=== PATIENT | male | born 1980 | race Two or more races ===

== ENCOUNTER → 2020-03-06 08:58 | Outpatient (BNVA) | payer MEDICARE, MEDICAID, SELFPAY | PROVIDERS: PCP Nurse Practitioner Family; Referring Provider Nurse Practitioner Family; Visit Provider Physician Assistant | DX: K58.0 Irritable bowel syndrome with diarrhea (principal); K21.9 Gastro-esophageal reflux disease without esophagitis; Z79.899 Other long term (current) drug therapy | CPT/HCPCS: 99203 ==

== ENCOUNTER → 2020-03-15 13:26 | Outpatient (REF) | payer MEDICARE, MEDICAID, SELFPAY | LOC: HO.SL 13:26 | PROVIDERS: PCP Nurse Practitioner Family; Visit Provider Nurse Practitioner Family | DX: G47.33 Obstructive sleep apnea (adult) (pediatric) (principal); R40.0 Somnolence; R06.83 Snoring; E66.9 Obesity, unspecified; I10 Essential (primary) hypertension | CPT/HCPCS: 95806 ==

== ENCOUNTER 2020-12-17 02:16 | Emergency (ER) | payer MEDICARE, MEDICAID, SELFPAY ==
--- NOTE | ~2020-12-17 | XR_ITS ---
EXAMINATION: XR TIBIA AND FIBULA, LEFT CLINICAL INFORMATION: Evaluate for fracture COMPARISON: 06/08/2012 TECHNIQUE: AP and lateral views of the left tibia and fibula were obtained. XR/XR tibia fibula LT 2V FINDINGS/IMPRESSION: No acute fracture or dislocation. There is a semitubular plate and screws across the distal fibular diaphysis with a single screw traversing the syndesmosis. No evidence of hardware failure or complication. Soft tissues unremarkable.
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
[2020-12-17 02:23] VITALS: BP 155/98; PULSE 86; RESP 16; TEMP 36.8; O2SAT 97; BMI 31.6
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
[2020-12-17 04:10] LABS: Glucose Urine UA NEG (NEG); Leukocyte Esterase Urine NEG (NEG); Nitrite Urine NEG (NEG); PH 5.5 (5.0-8.0); Specific Gravity - Urine <= 1.005 (1.005-1.025); Urine Blood NEG (NEG); Urine Ketones NEG (NEG); Urine Protein NEG (NEG-TRACE)
[2020-12-17 04:16] LABS: Amphetamine Screen Urine Not Detected (Not Detect); Barbiturates, Urine Not Detected (Not Detect); Benzodiazepines Screen Urine Not Detected (Not Detect); Cannabinoid Screen Urine Not Detected (Not Detect); Cocaine Screen Urine Not Detected (Not Detect); Opiate Screen Urine Not Detected (Not Detect); Phencyclidine Screen Urine Not Detected (Not Detect)
[2020-12-17 04:23] LABS: Color Urine STRAW
[2020-12-17 04:24] LABS: Appearance Urine CLEAR
[2020-12-17 05:03] VITALS: BP 143/100; PULSE 71; RESP 16; TEMP 36.5; O2SAT 98
--- NOTE | 2020-12-17 05:34 | PC.NURSE ---
PT DISCHARGED WITH AND WHILE IN THE WAITING ROOM HE REQUESTED CRUTCHES TO TAKE HOME. THIS NURSE INFORMED PROVIDER AND PAPERWORK WAS BEING FILLED OUT FOR CRUTCHES, PT AMBULATED OUT OF WAITING ROOM WITH ASSISTANCE FROM HIS SPOUSE. THIS NURSE WENT OUT TO GIVE PT CRUTCHES AND HAVE PT SIGN PAPERWORK BUT PT WAS ALREADY GONE. PROVIDER AND CHARGE NURSE NOTIFIED.
== END 2020-12-17 05:38 | disposition home or self-care (01) ==
PROVIDERS: Emergency Provider Emergency Medicine
DX: S80.212A Abrasion, left knee, initial encounter (principal); S80.211A Abrasion, right knee, initial encounter; F10.129 Alcohol abuse with intoxication, unspecified; M25.562 Pain in left knee; M25.561 Pain in right knee; G44.309 Post-traumatic headache, unspecified, not intractable; W17.89XA Other fall from one level to another, initial encounter; Y93.9 Activity, unspecified; Y92.9 Unspecified place or not applicable; Y99.9 Unspecified external cause status; Y90.9 Presence of alcohol in blood, level not specified; Z79.899 Other long term (current) drug therapy
CPT/HCPCS: 70450; 72125; 73590; 80307; 81003; 99284

== ENCOUNTER 2023-06-18 08:40 | Outpatient (REF) | payer MEDICARE, SELFPAY ==
[2023-06-18 11:54] LABS: MANUAL DIFF FLAG NO
[2023-06-18 12:09] LABS: Basophils Absolute Auto 0.1 X10*3/uL (0.0-0.2); Basophils Percent Auto 0.6 % (0-2); Eosinophils Absolute Auto 0.1 X10*3/uL (0.0-0.4); Eosinophils Percent Auto 0.6 % (0-4); Imm Gran Abs Auto 0.03 X10*3/uL (0.00-0.03); Imm Gran Pct Auto 0.4 % (0.0-0.4); Lymphocytes Absolute Auto 1.7 X10*3/uL (1.2-4.9); Lymphocytes Percent Auto 20.6 % (20-40); Mean Corpuscular HGB Conc 34.1 g/dl (31.0-36.0); Mean Corpuscular Hemoglobin 29.8 pg (27.0-33.0); Mean Corpuscular Volume 87.5 fL (80.0-98.0); Mean Platelet Volume 8.8 fL (9.4-12.4); Monocytes Absolute Auto 0.4 X10*3/uL (0.1-1.2); Monocytes Percent Auto 5.2 % (2-11); Neutrophils Absolute Auto 5.9 x10*3/uL (2.0-8.3); Neutrophils Percent Auto 72.6 % (45-73); Platelet Count 264 X10*3/uL (160-400); Red Blood Count 5.03 X10*6/uL (4.60-5.80); Red Cell Distribution Width 12.1 % (11.0-16.0); White Blood Count 8.1 X10*3/uL (4.8-10.8)
[2023-06-18 12:35] LABS: Estimated Average Glucose 97 mg/dL
[2023-06-18 12:42] LABS: Alanine Aminotransferase 47 U/L (0-40); Albumin Level 4.2 g/dL (3.5-5.0); Alkaline Phosphatase 60 U/L (39-117); Anion Gap 13 (12-20); Aspartate Amino Transferase 32 U/L (5-37); Bilirubin Total 0.8 mg/dL (0.0-1.0); Blood Urea Nitrogen 16 mg/dL (9-16); C Reactive Protein 0.11 mg/dL (< or = 0.50); Calcium 9.3 mg/dL (8.4-10.2); Carbon Dioxide 26 mmol/L (22-29); Chloride 105 mmol/L (96-108); Cholesterol 183 mg/dL (<200); Estimated Glomerular Filt Rate > 60; Glucose Random 106 mg/dL (60-115); HDL Cholesterol 42 mg/dL (>40); LDL Cholesterol Calculated 120 mg/dL (<100); Potassium 4.2 mmol/L (3.3-5.1); Sodium 140 mmol/L (135-145); TSH reflex Free T4 1.24 uIU/mL (0.32-4.0); Total Protein 7.6 g/dL (6.5-8.0); Triglycerides 106 mg/dL (<150); Uric Acid 6.6 mg/dL (3.4-7.0)
[2023-06-18 12:45] LABS: Erythrocyte Sedimentation Rate 7 MM/HR (0-15)
[2023-06-18 13:50] LABS: Reflex LDLD? No
== END 2023-06-18 08:41 | disposition home or self-care (01) ==
LOC: HO.HHCL 08:40
PROVIDERS: Visit Provider Family Medicine
DX: M10.9 Gout, unspecified (principal); R53.83 Other fatigue; I10 Essential (primary) hypertension
CPT/HCPCS: 36415; 80053; 80061; 83036; 84443; 84550; 85025; 85652; 86140

== ENCOUNTER 2024-02-03 13:20 | Outpatient (REF) | payer MEDICARE, SELFPAY ==
[2024-02-03 16:49] LABS: Alanine Aminotransferase 39 U/L (0-40); Albumin Level 4.4 g/dL (3.5-5.0); Alkaline Phosphatase 64 U/L (39-117); Anion Gap 12 (12-20); Aspartate Amino Transferase 36 U/L (5-37); Bilirubin Total 0.8 mg/dL (0.0-1.0); Blood Urea Nitrogen 13 mg/dL (9-16); Calcium 9.7 mg/dL (8.4-10.2); Carbon Dioxide 26 mmol/L (22-29); Chloride 106 mmol/L (96-108); Cholesterol 208 mg/dL (<200); Estimated Glomerular Filt Rate > 60; Glucose Random 104 mg/dL (60-115); HDL Cholesterol 37 mg/dL (>40); LDL Cholesterol Calculated 142 mg/dL (<100); Potassium 4.3 mmol/L (3.3-5.1); Sodium 140 mmol/L (135-145); Total Protein 7.7 g/dL (6.5-8.0); Triglycerides 146 mg/dL (<150)
[2024-02-04 04:12] LABS: CT PCR NOT DETECTED (Not Detect.); NG PCR NOT DETECTED (Not Detect.)
== END 2024-02-03 13:21 | disposition home or self-care (01) ==
LOC: HO.HHCL 13:20
PROVIDERS: Visit Provider Nurse Practitioner Family
DX: Z00.00 Encounter for general adult medical examination without abnormal findings (principal); Z72.51 High risk heterosexual behavior; Z20.9 Contact with and (suspected) exposure to unspecified communicable disease
CPT/HCPCS: 36415; 80053; 80061; 87491; 87591

== ENCOUNTER 2024-02-20 11:20 | Outpatient (REF) | payer MEDICARE, SELFPAY ==
[2024-02-20 12:26] LABS: CDiff Gene PCR NEGATIVE (Negative)
== END 2024-02-20 11:21 | disposition home or self-care (01) ==
LOC: HO.HHCLNP 11:20
PROVIDERS: Visit Provider Nurse Practitioner Family
DX: R19.7 Diarrhea, unspecified (principal)
CPT/HCPCS: 87338; 87493